=== PATIENT | male | born 2000 | race Caucasian/White ===

== ENCOUNTER 2019-12-03 08:57 | Emergency (ER) | payer SELFPAY ==
[~2019-12-03] VITALS: Ht 188 cm; Wt 68.2 kg
[2019-12-03] MEDS ORDERED: KETOROLAC 60 MG/2 ML VIAL. IM ONE (09:45)
[2019-12-03] MEDS ORDERED: diazePAM 5 MG TABLET. PO ONE (09:45)
[2019-12-03] MEDS ORDERED: NAPR-682 PO (09:50)
[2019-12-03] MEDS ORDERED: METH4TAB2 PO (09:50)
--- NOTE | 2019-12-03 09:53 | PHYS DOC ---
Past History Past Medical History: No Pertinent History Past Surgical History: No Surgical History Alcohol Use: Occasionally Additional Alcohol Information: twice per week Adult General Chief Complaint Chief Complaint: MECHANICAL FALL HPI HPI Patient is a 19-year-old male who presents to the emergency room complaining of left buttocks and hip pain. He states he was wrestling with his girlfriend and slipped and fell landing with her on top of him. He states that he is able to walk without problems but does have some discomfort with sitting. He has a lot of pain if he tries to bend over or squat. He denies any numbness or weakness in his legs. He denies any other injuries Review of Systems Review of Systems General: Denies fever, chills, sweats, fatigue Eyes: Denies drainage, blurred vision, eye redness HENT: Denies rhinorrhea, sore throat, earache Respiratory: Denies cough, shortness of breath, wheezing Cardiac: Denies edema, palpitations, chest pain GI: Denies abdominal pain, Nausea, vomiting MSK: Denies neck pain reports back pain Skin: Denies rash, jaundice Neuro: Denies headache, dizziness Psychiatric: Denies SI/HI Current Medications Current Medications Current Medications Medications (Trade) Dose Ordered Sig/Buddy Start Time Stop Time Status Last Admin Dose Admin Diazepam (Valium) 5 mg 1X ONCE 12/03/19 09:45 12/03/19 09:46 UNV Ketorolac Tromethamine (Toradol Im) 60 mg 1X ONCE 12/03/19 09:45 12/03/19 09:46 UNV Allergies Allergies Allergies Coded Allergies Type Severity Reaction Last Updated Verified No Known Drug Allergies 12/03/19 No Physical Exam Physical Exam General: Awake, alert, NAD. Well Nourished, well hydrated. Cooperative HEENT: Atraumatic, EOMI, PERRL, airway patent, moist oral mucosa Neck: Supple, trachea midline Respiratory: CTA bilaterally, normal effort, no wheezing/crackles CV: RRR, no murmur, cap refill <2 GI: Soft, nondistended, nontender, no masses MSK: No obvious deformities, no lumbar spine tenderness, muscle spasms along the left lower paraspinal area Skin: Warm, dry, intact Neuro: A&O x3, speech NL, sensory and motor grossly intact, no focal deficits Psych: Normal affect, normal mood, not suicidal or homicidal Current Patient Data Vital Signs Vital Signs Date Time Temp Pulse Resp B/P (MAP) Pulse Ox O2 Delivery O2 Flow Rate FiO2 12/03/19 09:06 97.9 78 18 137/74 (95) 98 Room Air EKG EKG [] Radiology/Procedures Radiology/Procedures [] Course & Med Decision Making Course & Med Decision Making Pertinent Labs and Imaging studies reviewed. (See chart for details) Patient is a 19-year-old male who presents to the Emergency room with back pain. Patient denies bowel incontinence, urinary retention, fever, numbness, weakness. On exam, patient does not have a neurologic deficits, saddle anesthesia, gait difficulty, signs of trauma, or wounds near area of pain. Patient does not have a history of cancer or prolonged steroid use. At this time, patient does not have any signs, symptoms, or risk factors of emergent causes of back pain making cauda equina, spinal abscess, transverse myelitis, fractures, and other causes of emergent back pain highly unlikely. At this time, patient does not need any further work up for their back pain and will be treated symptomatically. Patient's test results and vitals while in the ED were fully reviewed and discussed with the patient. Patient is stable and at this time does not need admission to the hospital. We have discussed strict return precautions and the importance of following up with their Primary Care Physician. Patient stated understanding and was given an opportunity to ask any questions. Patient is in agreement with plan. Dragon Disclaimer Dragon Disclaimer This electronic medical record was generated, in whole or in part, using a voice recognition dictation system. Departure Departure: Impression: Primary Impression: Back pain Additional Impression: Muscle strain Disposition: HOME/RESIDENCE PRIOR TO ADM Condition: STABLE Referrals: PCP,NO (PCP) Patient Instructions: Back Exercises, [id number], Back Pain, Adult Scripts Naproxen Sodium (ANAPROX DS) 550 Mg Tablet 1 TAB PO BID for muscle strain for 10 Days, #20 TAB 0 Refills Prov: GILBERTO MOORE MD 12/03/19 Methylprednisolone (MEDROL) 4 Mg Tab.ds.pk 1 PKG PO UD for muscle, #1 PKG Prov: GILBERTO MOORE MD 12/03/19 Justification of Admission: Justification of Admission: Justification of Admission Dx: N/A Problem Qualifiers GILBERTO MOORE MD Dec 03, 2019 09:53
[2019-12-03 10:28] VITALS: BP 119/69
== END 2019-12-03 10:28 | disposition home or self-care (01) ==
LOC: ER 08:57
DX: S39.012A Strain of muscle, fascia and tendon of lower back, initial encounter (principal); M25.552 Pain in left hip; W01.0XXA Fall on same level from slipping, tripping and stumbling without subsequent striking against object, initial encounter; Y93.72 Activity, wrestling; Y92.89 Other specified places as the place of occurrence of the external cause; Y99.8 Other external cause status
CPT/HCPCS: 96372; 99284; J1885

== ENCOUNTER 2021-02-02 17:28 | Emergency (ER) | payer SELFPAY ==
[~2021-02-02] VITALS: Ht 188 cm; Wt 68.2 kg
[~2021-02-02 17:28] MED LIST: METH4TAB2 PO; NAPR-682 PO
[2021-02-02 17:35] VITALS: BP 119/69
--- NOTE | 2021-02-02 18:41 | PHYS DOC ---
Past History Past Medical History: No Pertinent History (GO VALDIVIA LAB AIDE) Past Surgical History: No Surgical History (GO VALDIVIA APRN) Alcohol Use: None (GO VALDIVIA APRN) Adult General Chief Complaint Chief Complaint: RIB PAIN HPI HPI Patient is a 20-year-old male patient presenting to the ED today complaining of a sharp intermittent 2 out of 10 left rib pain, symptoms began 3 days ago, patient states the girlfriend was standing on the bed to reach on a ceiling fan string, she sat down and accidentally sat on patient's ribs, patient states the pain is worse on deep breaths as well as touching the left lateral ribs. Patient denies anything specifically relieving the pain. (GO VALDIVIA APRN) Review of Systems Review of Systems Constitutional: Denies fever or chills [] Respiratory: Denies cough or shortness of breath [] Cardiovascular: Reports left lateral rib pain Musculoskeletal: Denies back pain or joint pain [] Integument: Denies rash or skin lesions [] Neurologic: Denies headache, focal weakness or sensory changes [] All other systems were reviewed and found to be within normal limits, except as documented in this note. (GO VALDIVIA APRN) Allergies Allergies Allergies Coded Allergies Type Severity Reaction Last Updated Verified No Known Drug Allergies 12/03/19 No (GO VALDIVIA APRN) Physical Exam Physical Exam Constitutional: Well developed, well nourished, no acute distress, non-toxic appearance. [] HENT: Normocephalic, atraumatic, bilateral external ears normal, oropharynx moist, no oral exudates, nose normal. [] Eyes: PERRLA, EOMI, conjunctiva normal, no discharge. [] Neck: Normal range of motion, no tenderness, supple, no stridor. [] Cardiovascular:Heart rate regular rhythm, no murmur [] Lungs & Thorax: Left ribs with no obvious deformity, no ecchymosis, no bruising, bilateral breath sounds clear to auscultation, tenderness on palpation of the left lateral ribs mid axillary line approximately ribs 9,10 and 11. Abdomen: Bowel sounds normal, soft, no tenderness, no masses, no pulsatile masses. [] Skin: Warm, dry, no erythema, no rash. [] Back: No tenderness, no CVA tenderness. [] Extremities: No tenderness, no cyanosis, no clubbing, ROM intact, no edema. [] Neurologic: Alert and oriented X 3, normal motor function, normal sensory function, no focal deficits noted. [] Psychologic: Affect normal, judgement normal, mood normal. [] (GO VALDIVIA APRN) Current Patient Data Vital Signs Vital Signs Date Time Temp Pulse Resp B/P (MAP) Pulse Ox O2 Delivery O2 Flow Rate FiO2 02/02/21 17:35 98.7 18 119/69 (86) 97 Room Air (GO VALDIVIA APRN) EKG EKG [] (GO VALDIVIA APRN) Radiology/Procedures Radiology/Procedures []PROCEDURE: RIBS LEFT AND PA CHEST Exam:Left ribs with PA chest Date: 02/02/2021 6:00 PM Comparison: No prior Indication: Reason: left rib pain after girlfriend sat on him Findings: The heart is not enlarged. Mediastinal and hilar contours are normal. No focal parenchymal airspace opacity. No pleural effusion or pneumothorax. AP, Oblique and Spot images of left ribs demonstrate a nondisplaced fracture of the ninth lateral rib It is of note that an acute non-displaced rib fracture can be in-apparent on initial post-trauma imaging. IMPRESSION: 1. Nondisplaced left lateral ninth rib fracture. 2. No evidence of acute infiltrate. Electronically signed by: Leroy Self DO (02/02/2021 7:01 PM) [facility] DICTATED AND SIGNED BY: LEROY SELF DO DATE: 02/02/211858 CC: GO VALDIVIA APRN; PCP,NO ~MTH0 0 (GO VALDIVIA APRN) Heart Score C/O Chest Pain: N/A Risk Factors: Risk Factors: DM, Current or recent (<one month) smoker, HTN, HLP, family history of CAD, obesity. Risk Scores: Risk Factors: DM, Current or recent (<one month) smoker, HTN, HLP, family history of CAD, obesity. (GO VALDIVIA APRN) Course & Med Decision Making Course & Med Decision Making Pertinent Labs and Imaging studies reviewed. (See chart for details) This is a 20-year-old male patient presenting to the ED today with left lateral rib pain that began 3 days ago after the girlfriend sat on him. Left rib x-rays including PA chest interpreted by radiologist were noted for nondisplaced left lateral ninth rib fracture Discharged with Flexeril and naproxen. Deep breaths recommended. Incentive spi rometry also ordered. Follow-up with PCP in 1 week. Provided return precautions. (GO VALDIVIA APRN) Course & Med Decision Making Did not see or evaluate patient. Did not discuss patient with ELECTRONIC CONSOLE DISPLAY OPERATOR. Agree with ELECTRONIC CONSOLE DISPLAY OPERATOR's work-up and disposition per note. (RENARD MARTINEZ MD) Dragon Disclaimer Dragon Disclaimer This electronic medical record was generated, in whole or in part, using a voice recognition dictation system. (GO VALDIVIA APRN) Departure Departure: Impression: Primary Impression: Left rib fracture Disposition: HOME / SELF CARE / HOMELESS Condition: STABLE Referrals: PCP,NO (PCP) follow up in one week with your doctor Patient Instructions: Rib Fracture, [id number] Additional Instructions: You broke your ninth rib. We encourage you to take deep breaths 10 times every hour. Take the prescribed medications as needed for pain. Follow-up with your doctor in 1 week Scripts Naproxen (NAPROXEN) 500 Mg Tablet 1 TAB PO BID for pain for 7 Days, #14 TAB 0 Refills Prov: GO VALDIVIA APRN 02/02/21 Cyclobenzaprine Hcl (CYCLOBENZAPRINE HCL) 10 Mg Tablet 1 TAB PO TID, #30 TAB Prov: GO VALDIVIA APRN 02/02/21 Problem Qualifiers Primary Impression: Left rib fracture Encounter type: initial encounter Rib fracture type: single rib Fracture type: closed Qualified Codes: S22.32XA - Fracture of one rib, left side, initial encounter for closed fracture GO VALDIVIA APRN Feb 02, 2021 18:41 RENARD MARTINEZ MD Feb 02, 2021 20:22
--- NOTE | 2021-02-02 19:03 | RAD ---
Exam:Left ribs with PA chest Date: 02/02/2021 6:00 PM Comparison: No prior Indication: Reason: left rib pain after girlfriend sat on him Findings: The heart is not enlarged. Mediastinal and hilar contours are normal. No focal parenchymal airspace o pacity. No pleural effusion or pneumothorax. AP, Oblique and Spot images of left ribs demonstrate a nondisplaced fracture of the ninth lateral rib It is of note that an acute non-displaced rib fracture can be in-apparent on initial post-trauma lona ging. IMPRESSION: 1. Nondisplaced left lateral ninth rib fracture. 2. No evidence of acute infiltrate. Electronically signed by: Leroy Xiao DO (02/02/2021 7:01 PM) [facility]
[2021-02-02] MEDS ORDERED: CYCL10TA19 PO (19:16)
[2021-02-02] MEDS ORDERED: NAPR-514 PO (19:16)
== END 2021-02-02 19:36 | disposition home or self-care (01) ==
LOC: ER 17:28
DX: S22.32XA Fracture of one rib, left side, initial encounter for closed fracture (principal); X58.XXXA Exposure to other specified factors, initial encounter; Y93.89 Activity, other specified; Y92.89 Other specified places as the place of occurrence of the external cause; Y99.8 Other external cause status
CPT/HCPCS: 71101; 99283-25

== ENCOUNTER 2021-02-08 12:23 | Emergency (ER) | payer SELFPAY ==
[~2021-02-08] VITALS: Ht 188 cm; Wt 80.2 kg
[~2021-02-08 12:23] MED LIST changes: +CYCL10TA19 PO; +NAPR-514 PO
--- NOTE | 2021-02-08 12:41 | PHYS DOC ---
Past History Past Medical History: No Pertinent History Past Surgical History: No Surgical History Alcohol Use: None General Adult HPI: HPI: Patient is a 20 year old male who presents for follow-up regarding a rib fracture last week. Patient reports 2/10 left side chest wall pain, which she states is improved since initial injury. He has been taking the naproxen and muscle relaxer as prescribed. His last dose was 0800 today. Patient requests an additional 3 days off work, as he still has exacerbation of pain with heavy lifting. Patient has no other complaints at this time. Review of Systems: Review of Systems: 12 systems reviewed. ROS negative except as mentioned in HPI. Allergies: Allergies: Allergies Coded Allergies Type Severity Reaction Last Updated Verified No Known Drug Allergies 12/03/19 No Physical Exam: PE: Constitutional: Well developed, well nourished, no acute distress, non-toxic appearance. Cardiovascular: Heart rate regular rhythm, no murmur. Lungs & Thorax: Bilateral breath sounds clear to auscultation. Tenderness to palpation over left side lower ribs. Skin: Warm, dry, no erythema, no rash, no laceration, no abrasion. Current Patient Data: Vital Signs: VS - Last 72 Hours, by Label Date Time Temp Pulse Resp B/P (MAP) Pulse Ox O2 Delivery O2 Flow Rate FiO2 02/08/21 12:30 98.2 83 18 128/63 (84) 99 Room Air Heart Score: C/O Chest Pain: N/A Course & Med Decision Making: Course & Med Decision Making Pertinent Labs and Imaging studies reviewed. (See chart for details) Patient is unfamiliar with incentive spirometry, reports that he did not receive an incentive spirometer on his last visit. 1 will be provided for him today, as well as instruction on how to use it. Additionally, he states he has been sedentary since injury. I advised him to start becoming more active, as it will help in his symptom improvement in recovery. Patient understands and is agreeable to discharge plan. Vicky Disclaimer: Vicky Disclaimer: This electronic medical record was generated, in whole or in part, using a voice recognition dictation system. Departure Departure: Impression: Primary Impression: Left-sided chest wall pain Disposition: HOME / SELF CARE / HOMELESS Condition: STABLE Referrals: PCP,NO (PCP) Patient Instructions: Chest Wall Pain, [id number], Incentive Spirometer AMINAH TATUM Feb 08, 2021 12:41
[2021-02-08 14:02] VITALS: BP 98/63
== END 2021-02-08 14:02 | disposition home or self-care (01) ==
LOC: ER 12:23
DX: R07.89 Other chest pain (principal)
CPT/HCPCS: 99281